=== PATIENT | female | born 1940 | race Caucasian/White ===

== ENCOUNTER 2018-11-27 11:36 | Emergency (ER) | payer MEDICARE, SELFPAY ==
[2018-11-27 11:40] VITALS: BMI 32.9
[2018-11-27 11:52] VITALS: BP 138/85; PULSE 82; RESP 16; O2SAT 98
[2018-11-27 11:53] VITALS: TEMP 36.8
--- NOTE | 2018-11-27 12:09 | PC.NURSE ---
Skin tear noted to right distal leg. Bleeding controlled. Measures 9cm on one side of skin flap and 7 cm long on other side.
[2018-11-27] MEDS: TET,DIPH,PERTUSS(ACELL),VAC/PF 0.5 ML SYRINGE IM (13:17)
[2018-11-27] MEDS: LIDO 1%/SOD BICARB 8.4% (10ML) 10 ML SYRINGE INJ (13:18)
--- NOTE | 2018-11-27 14:36 | DI.RAD.S_ITS ---
PROCEDURE: XR TIBIA FUBULA RT 2V INDICATIONS: rule out foreign body/fracture TECHNIQUE: 2 views of the tibia and fibula were acquired. COMPARISON: None. FINDINGS: Bones: Patient is status post prior right total knee arthroplasty. Well-corticated bony fragment inferior to inferior portion of patella is noted, likely represent old injury versus postsurgical changes. No acute fracture or dislocation is seen. No gross hardware loosening or failure. Soft tissues: No radiopaque foreign body is seen. IMPRESSION: Prior right total knee arthroplasty. No acute fracture or dislocation. Corticated calcifications adjacent to inferior patella as above, most consistent with postsurgical changes. No gross hardware complication. No other radiopaque foreign body is seen. Dictated by: Edmund Mcdonnell M.D. on 11/27/2018 at 14:05 Approved by: Edmund Mcdonnell M.D. on 11/27/2018 at 14:07
--- NOTE | 2018-11-27 16:02 | ED_ITS ---
HPI - Wound/Laceration <PAWEL Alejandra - Last Filed: 11/28/18 00:09> General Chief Complaint: Wound/Laceration Stated Complaint: Laceration Rt lower leg Time Seen by Provider: 11/27/18 12:43 Source: patient Mode of arrival: ambulatory Limitations: no limitations History of Present Illness HPI narrative: This is a pleasant 78 year female, nonsmoker, presents to ED with her friends with chief complain of right lower leg deep laceration. She sustained a deep laceration after her leg got caught on a shrub branch and had degloving type of deep laceration laceration on right patel area 2 hours ago. She is unsure of her last tetanus vaccination date. She denies history of diabetes. She denies pain at this time and was ambulatory after the injury. Onset (ago): hour(s) (2) Location: other (RLE) Extremity Location: Right: lower leg Place: home (garden) Patient tetanus UTD: No Context: accidental Treatments prior to arrival: bandage Related Data Previous Rx's Medication Instructions Recorded cephalexin [Keflex] 500 mg PO QID 7 Days #28 cap 11/27/18 Allergies Allergy/AdvReac Type Severity Reaction Status Date / Time No Known Drug Allergies Allergy Verified 11/27/18 11:40 Review of Systems <PAWEL Alejandra - Last Filed: 11/28/18 00:09> Review of Systems General: Denies fever, chills, fatigue, malaise, sweats. HEENT: Denies sinus pain, ear pain, sore throat, difficulty swallowing, dizziness. Respiratory: Denies dyspnea, cough, wheezing, hemoptysis, sputum. Cardiovascular: Denies chest pain, palpitations, orthopnea, edema. Gastrointestinal: Denies nausea, vomiting, abdominal pain, diarrhea, constipation, melena. : Denies dysuria, frequency, incontinence, hematuria, urinary retention. Musculoskeletal: Denies weakness, joint pain or bony pain. Skin: See HPI Neurologic: Denies weakness, headache, numbness, change in speech, confusion, seizures, incoordination. Psychiatric: No concerning psychosocial issues. 12-point review of systems is negative except for those stated above. PFSH <PAWEL Alejandra - Last Filed: 11/28/18 00:09> Surgical History (Updated 11/27/18 @ 23:48 by PAWEL Alejandra) H/O knee surgery (Chronic) Social History Smoking Status: Never smoker Social History Smoking Status: Never smoker Exam <PAWEL Alejandra - Last Filed: 11/28/18 00:09> Narrative Exam Narrative: GEN: Alert, oriented x 3, well appearing and nourished, and in no acute distress. Head: Normal cephalic, atraumatic. No scalp or temporal tenderness, palpable mass or rash. EYES: Pupils are equal, round, and reactive to light and accommodation. Extraocular muscles are intact bilaterally. There is no subconjunctival hemorrhage, exudate and sclera non-icteric. ENT: Hearing grossly intact. Nose without bleeding, purulent discharge. Mucous membrane moist, no mucosal lesion. Airway patent. Neck: Trachea in midline. No JVD, non-tender without lymphadenopathy. No masses or thyroid megaly. Supple, non-tender and no meningeal signs. CARDIAC: Normal regular rate and rhythm without murmurs, gallops, or rubs. No chest wall tenderness. No peripheral edema, cyanosis or pallor. Capillary refill is less than 2 seconds. RESPIRATORY: Lungs are cleat to auscultate bilaterally. No cough, wheezes, rales, or rhonchi. No stridor, respiratory distress, increase work of breathing, or accessary muscle used. ABD: Abdomen soft, nontender and non-distended. No guarding or rebound tenderness to palpate. Bowel sounds are normal in all 4 quadrants. There is no palpable masses or organomegaly. EXT: Full painless ROM of all extremities with no loss of sensation, strength, effusion or edema. SKIN: Deep inverted V shape laceration on R patel 8x6 cm with edema and ecchymosis. Warm, dry, normal color for patient. BACK: Nontender without deformity or crepitance. No flank tenderness. NEUROLOGICAL: Alert and oriented to place, time and person. Sensation and motor function intact bilaterally. No facial droops, dysphasia. PSYCHIATRIC: Good judgement and reason, without hallucinations, abnormal affect or abnormal behaviors during the examination. Initial Vital Signs Initial Vital Signs: Vital Signs Pulse Rate 82 11/27/18 11:52 Respiratory Rate 16 11/27/18 11:52 Blood Pressure 138/85 11/27/18 11:52 Pulse Oximetry 98 11/27/18 11:52 <Courtney Warren DO - Last Filed: 11/29/18 18:01> Initial Vital Signs Initial Vital Signs: Vital Signs Pulse Rate 82 11/27/18 11:52 Respiratory Rate 16 11/27/18 11:52 Blood Pressure 138/85 11/27/18 11:52 Pulse Oximetry 98 11/27/18 11:52 Procedures <PAWEL Alejandra - Last Filed: 11/28/18 00:09> Laceration Repair Laceration 1: Site: lower extremity (8x6 cm) Side (If applicable): right Description: flap Depth: simple, single layer (involved adipose tissue) Local Anesthetic: lidocaine 1% and with bicarb Amount of anesthesia used (mL): 10 Pre-repair: wound explored, irrigated extensively and deep structures intact Skin layer closed with: steri-strips Size (cm): 4-0 Number of sutures: 24 Technique: simple, interrupted Subcutaneous layer closed with: chromic gut Size: 4-0 Number of sutures: 5 Course <PAWEL Alejandra - Last Filed: 11/28/18 00:09> Orders Ordered: Discontinued Medications Bacitracin (Bacitracin) 2 applic TOP NOW ONE Stop: 11/27/18 16:04 Last Admin: 11/27/18 16:24 Dose: 2 applic Diphtheria/Tetanus/Acell Pertussis (Adacel) 0.5 ml IM .ONCE ONE Stop: 11/27/18 12:52 Last Admin: 11/27/18 13:17 Dose: 0.5 ml Lidocaine/Sodium Bicarbonate (Buffered Lidocaine 10 Ml Syr) 10 ml INJ NOW ONE Stop: 11/27/18 12:52 Last Admin: 11/27/18 13:18 Dose: 10 ml Vital Signs - 8 hr 11/27/18 16:09 Pulse Rate 79 Respiratory Rate 16 Blood Pressure [Left Arm] 132/68 Pulse Oximetry 97 <Courtney Wraren DO - Last Filed: 11/29/18 18:01> Orders Ordered: Discontinued Medications Bacitracin (Bacitracin) 2 applic TOP NOW ONE Stop: 11/27/18 16:04 Last Admin: 11/27/18 16:24 Dose: 2 applic Diphtheria/Tetanus/Acell Pertussis (Adacel) 0.5 ml IM .ONCE ONE Stop: 11/27/18 12:52 Last Admin: 11/27/18 13:17 Dose: 0.5 ml Lidocaine/Sodium Bicarbonate (Buffered Lidocaine 10 Ml Syr) 10 ml INJ NOW ONE Stop: 11/27/18 12:52 Last Admin: 11/27/18 13:18 Dose: 10 ml Vital Signs - 8 hr 11/27/18 16:09 Pulse Rate 79 Respiratory Rate 16 Blood Pressure [Left Arm] 132/68 Pulse Oximetry 97 MDM - Wound/Laceration <PAWEL Alejandra - Last Filed: 11/28/18 00:09> Differential Diagnosis Differential diagnosis: Likely laceration and other (L lower leg fracture, Foreign body) Medical Records Attestation: I reviewed the patient's medical records. Imaging Data XR-Tib/fib: Radiologist's impression: Cherelle Marie 78 F [address] [place] [address] XRay Report Signed Patient: FrankCherelle [facility]#: [id number] : 1940cct:[id number] Age/Sex: 78 / FDate of Service: 11/27/18 Loc: ED Accession Number: [id number] Procedure: XR tibia fibula RT 2V Ordering Provider: Chris Camp PROCEDURE: XR TIBIA FUBULA RT 2V INDICATIONS: rule out foreign body/fracture TECHNIQUE: 2 views of the tibia and fibula were acquired. COMPARISON: None. FINDINGS: Bones: Patient is status post prior right total knee arthroplasty. Well- corticated bony fragment inferior to inferior portion of patella is noted, likely represent old injury versus postsurgical changes. No acute fracture or dislocation is seen. No gross hardware loosening or failure. Soft tissues: No radiopaque foreign body is seen. IMPRESSION: Prior right total knee arthroplasty. No acute fracture or dislocation. Corticated calcifications adjacent to inferior patella as above, most consistent with postsurgical changes. No gross hardware complication. No other radiopaque foreign body is seen. Dictated by: Edmund Mcdonnell M.D. on 11/27/2018 at 14:05 Approved by: Edmund Mcdonnell M.D. on 11/27/2018 at 14:07 [facility] Narrative Medical decision making narrative: This is 73-year-old very pleasant lady who presents to ED with deep, inverted V shape laceration to right patel. She sustained this injury after her right leg got caught on a shrub/marquez branch and tried removed her leg and lifting the leg up. She denies pains, tingling numbness to right lower extremity. She denies history of diabetes or on blood thinner. She has very thin, fragile skin and initially it appeared like a skin tear. However when the wound was explored after locally anesthetized, the wound appears to be very deep. See procedure note for laceration repair. This laceration repair was difficult due to the swelling around the edge of wound which was difficult to approximate. 5x deep suture was in placed with absorbent suture on rise side of the flap. Total 24 sutures were placed in addition to this. The x-ray shows there was no fracture, dislocation. Steri-Strips were applied to reinforce the approximation of the wound edge. The patient was advised to follow with her primary care physician in 2-3 days for wound recheck and informed suture removal in 7-10 days and this could be done by her primary care physician if she chooses to. The patient advised not to soak her wound in water. Return precautions were discussed with the patient such as signs and symptoms for infection. The patient was prescribed for 7 day course of antibiotic medication Keflex due to given the history and severity of the laceration and it is very close to the bone. The patient reports her granddaughter works at wound care center at [facility]. All the questions were answered and the patient agrees with the treatment plan. Discharge Plan Departure Patient Disposition: Home Clinical Impression: Laceration Discharge Date/Time: 11/27/18 16:26 Interventions: ED Discharge Assessment Last Done: 11/27/18 16:26 Instructions: DI for Laceration Repair Activity Restrictions/Additional Instructions: You have been diagnosed with deep laceration on your patel. X-ray test shows there is no foreign body or fractures on affected area. Please keep wound clean dry and intact for next 24 hours. Tried to elevate and use ice for swelling. After 24 hours you can wash to wound with soap and water, pat dry with paper towel, apply antibiotic ointment and cover with Band-Aid and Rashid wrap please monitor for signs and symptoms for infection such as increasing pain, redness, pus-like drainage, hot to touch, swelling. You will be taking antibody medications since this is a deep laceration your bone. You're going home with Keflex taking 4 times a day for 7 days. Please complete a course of antibiotic medication unless she develops problem. You're suture will be removed in 7-10 days and this can be done by primary care provider. What to do: *Take your medications as directed. *Follow up with your primary care provider in 2-3 days, call for an appointment wound check. Let them know you were seen in the ED and that we asked you to be seen in follow up. *Return to ED if you have any new, worsening, or concerning symptoms, such as signs and symptoms infection as stated above. Monitor for other acute problems such as chest pain, breathing trouble, unable to keep fluids. Prescriptions: New cephalexin [Keflex] 500 mg capsule 500 mg PO QID 7 Days Qty: 28 RF: 0 Referrals: Klarissa Broderick PA-C [Primary Care Provider] - <Courtney Warren DO - Last Filed: 11/29/18 18:01> Cosign ED Attending Cosashleyature Attestation: I was immediately available in the department for consultation. This documentation has been reviewed and I agree with assessment and plan. Supervised by Courtney Warren DO
--- NOTE | 2018-11-27 16:04 | PC.NURSE ---
Addendum entered by Alison Brooke R.N. 11/27/18 16:25: michelle wrap to leg, mery bandage placed to site. Original Note: sutures completed. steri strips placed to site.
[2018-11-27 16:09] VITALS: BP 132/68; PULSE 79; RESP 16; O2SAT 97
[2018-11-27] MEDS: BACITRACIN OINT 0.9 GM PCKT 2 APPLIC TOP (16:24)
== END 2018-11-27 16:26 | disposition home or self-care (01) ==
PROVIDERS: Emergency Provider Nurse Practitioner Family; PCP Physician Assistant
DX: S81.811A Laceration without foreign body, right lower leg, initial encounter (principal); W22.8XXA Striking against or struck by other objects, initial encounter
CPT/HCPCS: 12004; 73590; 90471; 99283; 90715